=== PATIENT | female | born 1965 | race Caucasian/White ===

== ENCOUNTER → 2016-06-26 | Outpatient (CLI) | payer BC ==
--- NOTE | 2016-06-26 12:41 | KCIC ---
PROCEDURE MRI cervical spine without contrast. HISTORY Degenerative disc disease, chronic neck pain, new left upper extremity numbness TECHNIQUE Multiplanar, multi sequential non contrast MR imaging was performed of the cervical spine. COMPARISON October 25, 2013 FINDINGS There is some motion degradation. Cervical cord caliber is within normal limits, no expansile or defined signal abnormality, limited evaluation for subtle signal change due to motion artifact. There is no significant abnormality of the cervical medullary junction. Cervical vertebral body stature and AP alignment are maintained. There is again mild degenerative disc disease at C5-C6. There is posterior annular tear C5-C6. C2-3: Spinal canal and neural foramina are adequate. C3-4: Neural foramina and spinal canal are adequate. C4-5: Spinal canal and the neural foramina are adequate. There is mild right facet hypertrophic change. C5-C6: There is minimal disc osteophyte complex and bulge somewhat greater than previously. Central canal is adequate 11 millimeters. Neural foramina are adequate. C6-7: Spinal canal and neural foramina are adequate. C7-T1: Spinal canal and neural foramina are adequate. There is a focus of marrow signal abnormality of the left C7 vertebral body slightly hyperintense on all sequences on up to 0.8 cm cc not convincingly changed, likely a hemangioma. IMPRESSION 1. There is no new significant cervical spinal stenosis or neural foramina compromise. There is mild degenerative disc disease and spondylosis C5-C6. Electronically signed by: Jevon Lazaro MD (Jun 26, 2016 12:40:26)
--- NOTE | 2016-06-26 12:43 | KCIC ---
PROCEDURE Two-view chest. HISTORY Continued productive cough. Pneumonia May 2016. COPD. COMPARISON No comparison. FINDINGS The cardiomediastinal silhouette is normal. Lungs are hyperexpanded. Lungs are clear. No pleural effusion or pneumothorax. No acute bone abnormality. IMPRESSION No acute cardiopulmonary process. Electronically signed by: Carlos Salcedo MD (Jun 26, 2016 12:42:03)
== END | disposition home or self-care (01) ==
LOC: KCIC MRI 11:18
PROVIDERS: ATTEND Nurse Practitioner Family
DX: M50.322 Other cervical disc degeneration at C5-C6 level (principal); M47.892 Other spondylosis, cervical region
CPT/HCPCS: 71020; 72141